=== PATIENT | male | born 1995 | race Caucasian/White ===

== ENCOUNTER 2017-09-09 14:36 | Emergency (ER) | payer BC, OTHER ==
[~2017-09-09] VITALS: Ht 185.4 cm; Wt 104.5 kg
[2017-09-09 14:39] VITALS: Ht 185.4 cm; Wt 104.5 kg
--- NOTE | 2017-09-09 18:20 | ERD ---
ER Documentation Chief Complaint Date/Time DATE: 09/09/17 TIME: 18:17 Chief Complaint cough x 2 mos HPI This 22--year-old male patient presents to emergency department with cough x 2 months, symptoms worse at night and in the morning, pt denies fever, chills, SOB , chest pain, or palpations, + smoking at least 1 cigarette a day . ROS All systems reviewed and are negative except as per history of present illness. Allergies Allergies: Coded Allergies: No Known Allergy (Unverified , 09/09/17) Physical Exam Vitals Vital Signs Date Time Temp Pulse Resp B/P Pulse Ox O2 Delivery O2 Flow Rate FiO2 09/09/17 14:39 98.7 89 18 165/84 98 Vitals stable, triage notes reviewed, blood pressure noted to be 165/84 Physical Exam Const: Well-nourished well-appearing well-hydrated 22-year-old male patient no acute distress Head: Eyes: Normal Conjunctiva, PERRLA, EOMI ENT: Bilateral tympanic membranes translucent, nasal mucosa edematous, right naris +3 with mucus noted septal wall is erythemic without bleeding points or crests, no maxillary or frontal sinus pressure, pharynx is erythemic without exudate, uvula midline without shift, rises and falls with pronation Neck: Full range of motion..~ No meningismus. No palpable cervical chain nodes Resp: Respirations even and unlabored, clear to auscultation bilaterally, no rales wheezes or rhonchi with forced expiration Cardio: S1-S2, no S3-S4 regular rate and rhythm, no murmurs Abd: Skin: Back: Ext: Neur: Awake and alert Psych: Normal Mood and Affect Procedures/MDM PROCEDURE: XR Chest. CLINICAL INDICATION: Cough TECHNIQUE: PA and lateral views of the chest were obtained COMPARISON: None FINDINGS: The heart and mediastinum are within normal limits. The lungs are clear. There is no pleural effusion or pneumothorax. The bones and soft tissues are unremarkable. RPTAT: AA IMPRESSION: No acute disease. Electronically viewed and signed by .Curtis Seth MD, on 09/09/2017 19: 38 This 22-year-old male patient presents to emergency department for a 2-month- old cough, symptoms are worse at night in the morning, and chronic sore throat with history of recurrent strep pharyngitis, patient reports that cough is nonproductive, he denies shortness of breath, fever chills, chest pain or palpitation. Patient reports cutting down on smoking but continues to smoke at least 1 cigarette a day. Patient states history of back pain secondary to " disc disease", patient report cough is making his back hurt. Patient denies injury, emergency room course includes history and physical exam, rapid strep and chest x-ray. Radiologist's interpretation negative for evidence of consolidation, infiltrate,, normal chest x-ray, rapid strep negative for evidence of strep pharyngitis, plan to discharge patient home with Angel Campos,, 1 tab p.o. 3 times daily as needed 7 days. Follow-up with primary care physician for treatment reevaluation and return to emergency department if symptoms fail to improve as anticipated or worsen, wheezing, shortness of breath , fever. Patient is stable with no new complaints during ER course, clinically there is no current evidence to suggest pneumonia, bronchitis, strep pharyngitis , sinusitis, or any other emergent condition appearing to require further evaluation or hospitalization. I feel the patient is stable for discharge at this time. I have discussed results, examination findings, the treatment plan with the patient and family present prior to discharge. Indications for emergent reevaluation, side effects of medication were also discussed. All questions were answered. Patient verbalizes understanding and agrees with plan of care. Departure Diagnosis: Primary Impression: Cough Condition: Good Patient Instructions: Cough, Chronic, Uncertain Cause, (Adult) Referrals: [facility] Additional Instructions: Thank you for for coming to [facility] for your care today. Please ask your nurse or provider if you have questions about your care today and do not leave until all your questions have been answered. Please use any medications given as directed and follow-up with your doctor (or the doctor you were referred to) in the next 2-3 days. If you do not have a primary care doctor you may follow up at the [facility] [place] (listed below). You may also use motrin and tylenol as needed for fever and/or pain unless instructed otherwise by your provider or nurse. Indications for more urgent follow-up have been discussed, but you may return to the Emergency Department at ANY time for any worrisome or worsening symptoms. If you have abdominal pain, please know that no test or exam you received is perfect and you should follow up within 8 hours for continued pain. If you had any imaging studies today, such as an X-Ray or CT Scan, these studies will be reviewed later by a radiologist. You will be called if there are important findings that were not identified today, so make sure the contact information you provided at registration is correct. If you received any narcotic pain control medicine today, such as Vicodin, Morphine or Dilaudid, your coordination and judgment may be affected for a number of hours. Please do not drive or operate heavy machinery, and you may want someone to assist you at home. If you were given a prescription for narcotic medication, be aware that it is very addictive- use sparingly and only if necessary. KARINE AMBROSE Sep 09, 2017 18:20
--- NOTE | 2017-09-09 19:38 | RADRPT ---
PROCEDURE: XR Chest. CLINICAL INDICATION: Cough TECHNIQUE: PA and lateral views of the chest were obtained COMPARISON: None FINDINGS: The heart and mediastinum are within normal limits. The lungs are clear. There is no pleural effusion or pneumothorax. The bones and soft tissues are unremarkable. RPTAT: AA IMPRESSION: No acute disease. .Curtis Seth MD, MD Date Time Electronically viewed and signed by .Curtis Seth MD, MD on 09/09/2017 19:38 .S/
[2017-09-09] MEDS ORDERED: BENZ100C70 PO (19:49)
== END 2017-09-09 20:53 | disposition home or self-care (01) ==
LOC: FTE 14:36
DX: R05 Cough (principal)
CPT/HCPCS: 71020; 87430; 87880